=== PATIENT | female | born 1990 | race Two or more races ===

== ENCOUNTER → 2018-02-07 | Emergency (ER) | payer OTHER ==
[~2018-02-07] VITALS: Ht 162.6 cm; Wt 46.7 kg
[~2018-02-07] MED LIST: PRENA1 CHEW TA1.4 MG
== END | disposition home or self-care (01) ==
LOC: ER 04:03 → EDBD 04:05
DX: Z34.01 Encounter for supervision of normal first pregnancy, first trimester (principal); O20.0 Threatened abortion

== ENCOUNTER 2023-08-21 22:49 | Inpatient (IN) | payer OTHER ==
[~2023-08-21] VITALS: Ht 162.6 cm; Wt 3.6 kg
[2023-08-21 23:25] LABS: HEMATOCRIT 33.7 % (36.0-45.00); HEMOGLOBIN 11.3 g/dL (12.0-15.00); MEAN CORPUSCULAR HEMOGLOBIN 28.1 pg (27.00-32.0); MEAN CORPUSCULAR HGB CONC 33.5 g/dl (32.0-36.0); PLATELET COUNT 268 K/uL (150-450); RED BLOOD COUNT 4.02 M/uL (4.00-6.00)
[2023-08-21 23:26] LABS: RED CELL DISTRIBUTION WIDTH 17.7 % (11.5-14.5)
[2023-08-21 23:39] LABS: INR < 0.93; PARTIAL THROMBOPLASTIN TIME 24.1 SECONDS (22.0-34.0); PROTHROMBIN TIME 9.8 SECONDS (9.0-11.5)
[2023-08-21 23:45] LABS: ALBUMIN 2.7 gm/dL (3.4-5.0); BILIRUBIN TOTAL 0.43 mg/dL (0.3-1.2); CREATININE SERUM 0.55 mg/dL (0.55-1.02); GFR 127.29; POTASSIUM 3.61 mEq/L (3.5-5.1); TOTAL PROTEIN 6.7 gm/dL (6.4-8.2)
[2023-08-22 06:27] LABS: HEMATOCRIT 35.2 % (36.0-45.00); HEMOGLOBIN 11.4 g/dL (12.0-15.00); MEAN CELL VOLUME 86.1 fL (80.00-100.00); MEAN CORPUSCULAR HEMOGLOBIN 27.8 pg (27.00-32.0); MEAN CORPUSCULAR HGB CONC 32.3 g/dl (32.0-36.0); PLATELET COUNT 269 K/uL (150-450); RED BLOOD COUNT 4.08 M/uL (4.00-6.00); RED CELL DISTRIBUTION WIDTH 17.3 % (11.5-14.5)
[2023-08-24] MEDS ORDERED: KETO10TA2 PO (12:04)
[2023-08-24] MEDS ORDERED: OXYC1TAB9 PO (12:04)
== END 2023-08-24 17:49 | disposition home or self-care (01) | DRG 788 ==
LOC: OB/GYN 22:49 → LDR 22:49 → O/R 08-22 01:12 → OB/GYN 08-22 02:19
PROVIDERS: ADMIT Obstetrics & Gynecology; ATTEND Obstetrics & Gynecology
PROC: 4A1HXCZ Monitoring of Products of Conception, Cardiac Rate, External Approach (ICD-10-PCS; 2023-08-21)
PROC: 10D00Z1 Extraction of Products of Conception, Low, Open Approach (ICD-10-PCS; principal; 2023-08-22 07:00)
DX: O62.1 Secondary uterine inertia (principal); O36.63X0 Maternal care for excessive fetal growth, third trimester, not applicable or unspecified; Z3A.38 38 weeks gestation of pregnancy; Z37.0 Single live birth; Z20.822 Contact with and (suspected) exposure to COVID-19